=== PATIENT | male | born 1995 | race Caucasian/White ===

== ENCOUNTER 2017-05-09 02:27 | Emergency (ER) | payer BC, SELFPAY ==
[2017-05-09] MEDS ORDERED: Ondansetron HCl/PF 4 MG/2 ML Vial ONE (05:11)
== END 2017-05-09 05:45 | disposition home or self-care (01) ==
LOC: ERS 02:27
DX: F10.129 Alcohol abuse with intoxication, unspecified (principal)
CPT/HCPCS: 96361; 96374; J2405